=== PATIENT | female | born 1960 | race African-American/Black ===

== ENCOUNTER → 2016-11-05 | Outpatient (CLI) | payer OTHER ==
[2016-11-05 14:19] LABS: ALANINE AMINOTRANSFERASE 34 U/L (9-52); ALBUMIN 4.9 g/dL (3.5-5.0); ALKALINE PHOSPHATASE 65 U/L (38-126); ANION GAP 12 (5-19); ASPARTATE AMINO TRANSFERASE 30 U/L (14-36); BLOOD UREA NITROGEN 21 mg/dL (7-20); CALCIUM 10.1 mg/dL (8.4-10.2); CARBON DIOXIDE 28 mmol/L (22-30); CHLORIDE 101 mmol/L (98-107); CHOLESTEROL 310.86 mg/dL (0-200); CREATININE RESULT 1.31 mg/dL (0.52-1.25); Direct HDL 62 mg/dL (>40); GLUCOSE 85 mg/dL (75-110); SODIUM 140.7 mmol/L (137-145); TOTAL PROTEIN 8.1 g/dL (6.3-8.2); TRIGLYCERIDES 117 mg/dL (<150)
[2016-11-05 14:31] LABS: DIRECT LDL 211 mg/dL (<100)
[2016-11-05 14:40] LABS: ABSOLUTE EOSINOPHILS # (AUTO) 0.4 10^3/uL (0.0-0.6); ABSOLUTE MONOCYTES (AUTO) 0.3 10^3/uL (0.1-1.4); ABSOLUTE NEUT (AUTO) 1.3 10^3/uL (1.7-8.2); BASOPHILS % (AUTO) 0.2 % (0-2); EOSINOPHILS % (AUTO) 9.2 % (0-6); HEMATOCRIT 38.1 % (36.0-47.0); HEMOGLOBIN 13.5 g/dL (12.0-15.5); HGB HCT DIFFERENCE 2.4; LYMPHOCYTES % (AUTO) 51.5 % (13-45); MEAN CORPUSCULAR HEMOGLOBIN 31.6 pg (27.0-33.4); MEAN CORPUSCULAR HGB CONC 35.4 g/dL (32.0-36.0); MEAN CORPUSCULAR VOLUME 89 fl (80-97); RED BLOOD COUNT 4.28 10^6/uL (3.72-5.28); RED CELL DISTRIBUTION WIDTH 12.9 % (11.5-14.0); SEGMENTED NEUTROPHILS % (AUTO) 32.1 % (42-78); WHITE BLOOD COUNT 3.9 10^3/uL (4.0-10.5)
[2016-11-06 09:39] LABS: HEPATITIS C VIRUS AB <0.1 s/co ratio (0.0-0.9)
== END ==
LOC: CCC 12:21
DX: I10 Essential (primary) hypertension (principal); Z11.59 Encounter for screening for other viral diseases
CPT/HCPCS: 36415; 80053; 80061; 82607; 82746; 83036; 84443; 85025; 86803; 86804

== ENCOUNTER 2017-07-10 16:32 | Emergency (ER) | payer SELFPAY ==
--- NOTE | 2017-07-10 17:54 | RADIOLOGY REPORT (SQ) ---
EXAM DESCRIPTION: SOFT TISSUE NECK COMPLETED DATE/TIME: 07/10/2017 5:41 pm REASON FOR STUDY: sore throat COMPARISON: None. NUMBER OF VIEWS: Two views. TECHNIQUE: AP and lateral radiographic image of the soft tissues of the neck. LIMITATIONS: None. FINDINGS: EPIGLOTTIS: Normal. Contour normal. Aryepiglottic folds normal. PREVERTEBRAL SOFT TISSUES: Normal. No soft tissue swelling. SUBGLOTTIC AREA: Normal. No narrowing. RETROPHARYNGEAL SPACE: Normal. No soft tissue masses. BONES: No significant findings. LUNG APICES: Normal. OTHER: No radiopaque foreign body. No other significant finding. IMPRESSION: NEGATIVE STUDY OF THE SOFT TISSUES OF THE NECK. TECHNICAL DOCUMENTATION: JOB ID: [id number] [employer]- All Rights Reserved
[2017-07-10] MEDS ORDERED: SUCRALFATE SUSP 1 GM/10 ML UDCUP PO ONE (18:20)
--- NOTE | 2017-07-10 18:44 | ER Document Report ---
HPI - HPI Patient complains to provider of: Sore throat Onset: Other Onset/Duration: Gradual Quality of pain: Stabbing Severity: Moderate Pain Level: 3 Context: Patient states she has had a sore throat for the last 2-3 days, worse today. Patient states it feels like she is unable to swallow food and that her throat is partially closed. Pain is on the right side of the throat, and described as sharp. Patient states when she eats it is painful as the food goes down. Patient does admit to having reflux pretty consistently for the past 2 weeks whereas she only had it intermittently in the past. Patient denies shortness of breath, and only experiences mid chest pain as she is swallowing food. Denies fever or recent illness. Patient does have a history of allergies and takes a daily Zyrtec for this. Associated Symptoms: None Exacerbated by: Food Relieved by: Denies Similar symptoms previously: No Recently seen / treated by doctor: No - ROS ROS below otherwise negative: Yes Systems Reviewed and Negative: Yes All other systems reviewed and negative - CONSTITUTIONAL Constitutional: DENIES: Fever - EENT EENT: DENIES: Congestion - NEURO Neurology: DENIES: Headache - CARDIOVASCULAR Cardiovascular: REPORTS: Chest pain - Only with swallowing food - RESPIRATORY Respiratory: DENIES: Trouble Breathing - GASTROINTESTINAL Gastrointestinal: DENIES: Abdominal Pain - URINARY Urinary: DENIES: Dysuria - REPRODUCTIVE Reproductive: DENIES: : - MUSCULOSKELETAL Musculoskeletal: DENIES: Extremity pain - DERM Skin Color: Normal, [place] Past Medical History - General Information source: Patient - Social History Smoking Status: Never Smoker Frequency of alcohol use: None Drug Abuse: None Lives with: Family Family History: Reviewed & Not Pertinent Patient has suicidal ideation: No Patient has homicidal ideation: No - Past Medical History Cardiac Medical History: Reports: Hx Hypertension Pulmonary Medical History: Reports: Hx Asthma - SEASONAL ALLERGIES Renal/ Medical History: Denies: Hx Peritoneal Dialysis Past Surgical History: Reports: Hx Hysterectomy, Hx Tubal Ligation - Immunizations Hx Diphtheria, Pertussis, Tetanus Vaccination: Yes Vertical Provider Document - CONSTITUTIONAL Agree With Documented VS: Yes Exam Limitations: No Limitations General Appearance: WD/WN, No Apparent Distress - INFECTION CONTROL TRAVEL OUTSIDE OF THE [place] IN LAST 30 DAYS: No - HEENT HEENT: Atraumatic, Normocephalic Notes: Mild erythema to throat, more on the right side than left. Neck is supple no adenopathy. TMs are dull bilaterally. - NECK Neck: Normal Inspection - RESPIRATORY Respiratory: Breath Sounds Normal, No Respiratory Distress, Chest Non-Tender O2 Sat by Pulse Oximetry: 100 - CARDIOVASCULAR Cardiovascular: Regular Rate, Regular Rhythm - GI/ABDOMEN Gastrointestinal: Abdomen Soft, Normal Bowel Sounds Notes: Patient does have mild epigastric pain on palpation. - MUSCULOSKELETAL/EXTREMETIES Musculoskeletal/Extremeties: MAEW - NEURO Level of Consciousness: Awake, Alert, Appropriate - DERM Integumentary: Warm, Dry, No Rash Course - Re-evaluation Re-evalutation: 07/10/17 18:41 X-ray of soft tissue of neck normal and discussed with patient . consult to Dr. Hernandez with patient's HPI. Do an EKG. no further cardiac workup required at this time, have patient follow-up with her family doctor next week 07/10/17 19:06 Patient states her epigastric discomfort was relieved by the Carafate. - Vital Signs Vital signs: Temp Pulse Resp BP Pulse Ox 98.1 F 84 16 152/91 H 100 07/10/17 16:35 07/10/17 16:35 07/10/17 16:35 07/10/17 16:35 07/10/17 16:35 Discharge - Discharge Clinical Impression: Sore throat, Heartburn Condition: Good Disposition: HOME, SELF-CARE Instructions: Sore Throat ([facility]) Additional Instructions: Sore throat can be caused by postnasal drainage as well as the reflux you have been experiencing for the last 2 weeks Continue your daily antihistamine Take meds as prescribed Follow-up with your primary care doctor Thursday, schedule appointment. Return if worsens and as needed Prescriptions: Diazepam [Valium 5 mg Tablet] 5 mg PO PRN PRN #10 tablet PRN Reason: Ranitidine HCl [Zantac 150 mg Tablet] 150 mg PO BID #45 tablet Forms: Return to Work
[2017-07-10 18:54] VITALS: BP 144/96
--- NOTE | 2017-07-11 07:46 | EKG REPORT ---
SEVERITY:- BORDERLINE ECG - SINUS RHYTHM LVH BY VOLTAGE NONSPECIFIC ST-T CHANGES- INFERIOR LEADS : Confirmed by: Bruce Munoz MD 11-Jul-2017 07:45:48
== END 2017-07-10 18:54 | disposition home or self-care (01) ==
LOC: ER 16:32
DX: J02.9 Acute pharyngitis, unspecified (principal); R12 Heartburn; I10 Essential (primary) hypertension; Z90.710 Acquired absence of both cervix and uterus
CPT/HCPCS: 70360; 93005; 93010; 99283

== ENCOUNTER 2017-08-11 12:26 | Emergency (ER) | payer SELFPAY ==
--- NOTE | 2017-08-11 12:35 | ER Document Report ---
ED Medical Screen (RME) - General Chief Complaint: Headache Stated Complaint: BLOOD PRESSURE CONCERNS Time Seen by Provider: 08/11/17 12:34 Notes: Patient states she has a severe frontal headache. She states she woke up this morning with a headache and it is become more severe throughout the morning. She denies any previous history of headaches. No known trauma or fevers. She states she has been vomiting. TRAVEL OUTSIDE OF THE [place] IN LAST 30 DAYS: No - Related Data Allergies/Adverse Reactions: codeine [Codeine] Allergy (Verified 08/11/17 12:33) tetracycline [Tetracycline] Allergy (Verified 08/11/17 12:33) Past Medical History - Past Medical History Cardiac Medical History: Reports: Hx Hypertension Denies: Hx Coronary Artery Disease, Hx Heart Attack Pulmonary Medical History: Reports: Hx Asthma - SEASONAL ALLERGIES Denies: Hx Bronchitis, Hx COPD, Hx Pneumonia Neurological Medical History: Denies: Hx Cerebrovascular Accident, Hx Seizures Renal/ Medical History: Denies: Hx Peritoneal Dialysis Musculoskeltal Medical History: Denies Hx Arthritis Past Surgical History: Reports: Hx Hysterectomy, Hx Tubal Ligation - Immunizations Hx Diphtheria, Pertussis, Tetanus Vaccination: Yes Physical Exam - Vital signs Vitals: Temp Pulse Resp BP Pulse Ox 98.7 F 78 16 144/97 H 100 08/11/17 12:31 08/11/17 12:31 08/11/17 12:31 08/11/17 12:31 08/11/17 12:31 Course - Vital Signs Vital signs: Temp Pulse Resp BP Pulse Ox 98.7 F 78 16 144/97 H 100 08/11/17 12:31 08/11/17 12:31 08/11/17 12:31 08/11/17 12:31 08/11/17 12:31
--- NOTE | 2017-08-11 12:49 | RADIOLOGY REPORT (SQ) ---
EXAM DESCRIPTION: CT HEAD WITHOUT COMPLETED DATE/TIME: 08/11/2017 12:40 pm REASON FOR STUDY: severe frontal duenas COMPARISON: 04/30/2011 TECHNIQUE: Axial images acquired through the brain without intravenous contrast. Images reviewed wi th bone, brain and subdural windows. Images stored on PACS. All CT scanners at this facility use dose modulation, iterative reconstruction, and/or weight based d osing when appropriate to reduce radiation dose to as low as reasonably achievable (ALARA). [facility]: Dose Right [facility]: CareDose [facility]: Dose Right [facility]: Teradose 4D [facility]: [facility] RADIATION DOSE: 64.6mGy. LIMITATIONS: None. FINDINGS: VENTRICLES: Normal size and contour. CEREBRUM: No masses. No hemorrhage. No midline shift. No evidence for acute infarction. Normal gra y/white matter differentiation. No areas of low density in the white matter. CEREBELLUM: No masses. No hemorrhage. No alteration of density. No evidence for acute infarction. EXTRAAXIAL SPACES: No fluid collections. No masses. ORBITS AND GLOBE: No intra- or extraconal masses. Normal contour of globe without masses. CALVARIUM: No fracture. PARANASAL SINUSES: No fluid or mucosal thickening. SOFT TISSUES: No mass or hematoma. OTHER: No other significant finding. IMPRESSION: NORMAL BRAIN CT WITHOUT CONTRAST. EVIDENCE OF ACUTE STROKE: NO. COMMENT: Quality ID # [id number]: Final reports with documentation of one or more dose reduction techniques (e.g., Automated exposure control, adjustment of the mA and/or kV according to patient size, use of iterative reconstruction technique) TECHNICAL DOCUMENTATION: JOB ID: [id number] [employer]- All Rights Reserved
[2017-08-11 13:07] LABS: ABSOLUTE EOSINOPHILS # (AUTO) 0.4 10^3/uL (0.0-0.6); ABSOLUTE LYMPHOCYTES (AUTO) 1.9 10^3/uL (0.5-4.7); ABSOLUTE MONOCYTES (AUTO) 0.2 10^3/uL (0.1-1.4); ABSOLUTE NEUT (AUTO) 1.1 10^3/uL (1.7-8.2); BASOPHILS % (AUTO) 0.4 % (0-2); EOSINOPHILS % (AUTO) 10.6 % (0-6); HEMATOCRIT 37.6 % (36.0-47.0); HEMOGLOBIN 13.5 g/dL (12.0-15.5); HGB HCT DIFFERENCE 2.9; LYMPHOCYTES % (AUTO) 51.8 % (13-45); MEAN CORPUSCULAR HEMOGLOBIN 32.1 pg (27.0-33.4); MEAN CORPUSCULAR HGB CONC 35.8 g/dL (32.0-36.0); MEAN CORPUSCULAR VOLUME 90 fl (80-97); MONOCYTES % (AUTO) 6.8 % (3-13); RED BLOOD COUNT 4.19 10^6/uL (3.72-5.28); RED CELL DISTRIBUTION WIDTH 12.7 % (11.5-14.0); SEGMENTED NEUTROPHILS % (AUTO) 30.4 % (42-78); WHITE BLOOD COUNT 3.6 10^3/uL (4.0-10.5)
[2017-08-11 13:29] LABS: ALANINE AMINOTRANSFERASE 37 U/L (9-52); ALBUMIN 4.5 g/dL (3.5-5.0); ALKALINE PHOSPHATASE 67 U/L (38-126); ANION GAP 13 (5-19); ASPARTATE AMINO TRANSFERASE 32 U/L (14-36); BILIRUBIN,DIRECT 0.3 mg/dL (0.0-0.4); BLOOD UREA NITROGEN 20 mg/dL (7-20); CALCIUM 9.8 mg/dL (8.4-10.2); CARBON DIOXIDE 29 mmol/L (22-30); CHLORIDE 102 mmol/L (98-107); CREATININE RESULT 1.27 mg/dL (0.52-1.25); GLUCOSE 85 mg/dL (75-110); POTASSIUM 3.7 mmol/L (3.6-5.0); SODIUM 143.5 mmol/L (137-145); TOTAL PROTEIN 7.3 g/dL (6.3-8.2)
[2017-08-11] MEDS ORDERED: DIPHENHYDRAMINE HCL 50 MG/ML VIAL IV ONE (13:49)
[2017-08-11] MEDS ORDERED: PROCHLORPERAZINE EDISYLATE INJ 10 MG/2 ML VIAL IV ONE (13:49)
--- NOTE | 2017-08-11 13:49 | ER Document Report ---
ED Blood Pressure Problem - General Mode of Arrival: Ambulatory Information source: Patient TRAVEL OUTSIDE OF THE [place] IN LAST 30 DAYS: No <ALVA MENDOZA - Last Filed: 08/11/17 13:49> <VOLODYMYR FALL - Last Filed: 08/11/17 16:07> - General Chief Complaint: Headache Stated Complaint: BLOOD PRESSURE CONCERNS Time Seen by Provider: 08/11/17 12:34 Notes: Patient is a 57 year old female that presents to the emergency department today with complaints of elevated blood pressures with an associated headache at home. Patient states that she has been out of her HCTZ for a few days. (ALVA MENDOZA) - Related Data Allergies/Adverse Reactions: codeine [Codeine] Allergy (Verified 08/11/17 12:33) tetracycline [Tetracycline] Allergy (Verified 08/11/17 12:33) Past Medical History - General Information source: Patient - Social History Smoking Status: Never Smoker Cigarette use (# per day): No Chew tobacco use (# tins/day): No Frequency of alcohol use: Occasional Drug Abuse: None Lives with: Family Family History: Reviewed & Not Pertinent Patient has suicidal ideation: No Patient has homicidal ideation: No - Past Medical History Cardiac Medical History: Reports: Hx Hypertension Pulmonary Medical History: Reports: Hx Asthma - SEASONAL ALLERGIES Past Surgical History: Reports: Hx Hysterectomy, Hx Tubal Ligation - Immunizations Hx Diphtheria, Pertussis, Tetanus Vaccination: Yes <ALVA MENDOZA - Last Filed: 08/11/17 13:49> Review of Systems - Review of Systems Constitutional: No symptoms reported EENT: No symptoms reported Cardiovascular: See HPI, Other - HTN Respiratory: No symptoms reported Gastrointestinal: No symptoms reported Genitourinary: No symptoms reported Female Genitourinary: No symptoms reported Musculoskeletal: No symptoms reported Skin: No symptoms reported Hematologic/Lymphatic: No symptoms reported Neurological/Psychological: See HPI, Headaches -: Yes All other systems reviewed and negative <ALVA MENDOZA - Last Filed: 08/11/17 13:49> Physical Exam - Vital signs Interpretation: Normal - General General appearance: Appears well, Alert - HEENT Head: Normocephalic, Atraumatic Eyes: Normal Pupils: PERRL - Respiratory Respiratory status: No respiratory distress Chest status: Nontender Breath sounds: Normal Chest palpation: Normal - Cardiovascular Rhythm: Regular Heart sounds: Normal auscultation Murmur: No - Abdominal Inspection: Normal Distension: No distension Bowel sounds: Normal Tenderness: Nontender Organomegaly: No organomegaly - Back Back: Normal, Nontender - Extremities General upper extremity: Normal inspection, Nontender, Normal color, Normal ROM , Normal temperature General lower extremity: Normal inspection, Nontender, Normal color, Normal ROM , Normal temperature, Normal weight bearing. No: Juan's sign - Neurological Neuro grossly intact: Yes Cognition: Normal Orientation: AAOx4 [place] Coma Scale Eye Opening: Spontaneous Manjinder Coma Scale Verbal: Oriented Manjinder Coma Scale Motor: Obeys Commands [place] Coma Scale Total: 15 Speech: Normal Motor strength normal: LUE, RUE, LLE, RLE Sensory: Normal - Psychological Associated symptoms: Normal affect, Normal mood - Skin Skin Temperature: Warm Skin Moisture: Dry Skin Color: Normal <VOLODYMYR FALL - Last Filed: 08/11/17 16:07> - Vital signs Vitals: Temp Pulse Resp BP Pulse Ox 98.7 F 78 16 144/97 H 100 08/11/17 12:31 08/11/17 12:31 08/11/17 12:31 08/11/17 12:31 08/11/17 12:31 Course - Laboratory Result Diagrams: 08/11/17 12:50 08/11/17 12:50 <ALVA MENDOZA - Last Filed: 08/11/17 13:49> - Laboratory Result Diagrams: 08/11/17 12:50 08/11/17 12:50 - Diagnostic Test Radiology reviewed: Reports reviewed <VOLODYMYR FALL - Last Filed: 08/11/17 16:07> - Re-evaluation Re-evalutation: 08/11/17 Patient is feeling better after headache medicine. No acute findings on blood work or CT head. Stable for discharge. Follow-up with PMD. Patient has been given a refill of her hydrochlorothiazide. (VOLODYMYR FALL) - Vital Signs Vital signs: Temp Pulse Resp BP Pulse Ox 98.0 F 70 18 142/85 H 99 08/11/17 15:29 08/11/17 15:29 08/11/17 15:29 08/11/17 15:29 08/11/17 15:29 - Laboratory Laboratory results interpreted by me: 08/11/17 08/11/17 08/11/17 12:50 12:50 13:55 WBC 3.6 L Seg Neutrophils % 30.4 L Lymphocytes % 51.8 H Eosinophils % 10.6 H Absolute Neutrophils 1.1 L Creatinine 1.27 H Est GFR ( Amer) 52 L Est GFR (Non-Af Amer) 43 L Ur Leukocyte Esterase LARGE H Discharge <ALVA MENDOZA - Last Filed: 08/11/17 13:49> <VOLODYMYR FALL - Last Filed: 08/11/17 16:07> - Discharge Clinical Impression: Blood pressure check Headache Qualifiers: Headache type: unspecified Headache chronicity pattern: acute headache Intractability: not intractable Qualified Code(s): R51 - Headache Condition: Stable Disposition: HOME, SELF-CARE Instructions: Headache ([facility]) Prescriptions: Hydrochlorothiazide 25 mg PO DAILY #30 tablet Scribe Attestation: 08/11/17 16:07 I personally performed the services described in the documentation, reviewed and edited the documentation which was dictated to the scribe in my presence, and it accurately records my words and actions. (VOLODYMYR FALL) Scribe Documentation - Scribe Written by Yovany:: Yovany Pedraza, 08/11/2017 1358 acting as scribe for :: Alfie <ALVA MENDOZA - Last Filed: 08/11/17 13:49>
[2017-08-11 14:10] LABS: APPEARANCE,URINE SLIGHTLY-CLOUDY; BILIRUBIN,URINE NEGATIVE (NEGATIVE); GLUCOSE, URINE NEGATIVE (NEGATIVE); KETONES,URINE NEGATIVE (NEGATIVE); LEUKOCYTE ESTERASE,URINE LARGE (NEGATIVE); NITRITE,URINE NEGATIVE (NEGATIVE); PROTEIN,URINE NEGATIVE (NEGATIVE); URINE SPECIFIC GRAVITY 1.012; UROBILINOGEN,URINE NEGATIVE mg/dL (<2.0)
[2017-08-11 14:27] LABS: URINE BARBITURATES SCREEN NEGATIVE; URINE METHADONE SCREEN NEGATIVE; URINE OPIATES LOW NEGATIVE; URINE PHENCYCLIDINE SCREEN NEGATIVE
[2017-08-11 15:29] VITALS: BP 142/85
== END 2017-08-11 15:30 | disposition home or self-care (01) ==
LOC: ER 12:26
DX: I10 Essential (primary) hypertension (principal); T50.2X6A Underdosing of carbonic-anhydrase inhibitors, benzothiadiazides and other diuretics, initial encounter; Z91.128 Patient's intentional underdosing of medication regimen for other reason; Z91.14 Patient's other noncompliance with medication regimen; R51 Headache; J45.909 Unspecified asthma, uncomplicated; Z88.5 Allergy status to narcotic agent; Z88.1 Allergy status to other antibiotic agents
CPT/HCPCS: 99284; 96374; 96375; 36415; 85025; 80053; 81001; 84484; 80307; 70450; J1200; J0780

== ENCOUNTER 2019-05-19 11:50 | Emergency (ER) | payer SELFPAY ==
[2019-05-19] MEDS ORDERED: PROCHLORPERAZINE EDISYLATE INJ 10 MG/2 ML VIAL IV ONE (12:27)
[2019-05-19] MEDS ORDERED: DIPHENHYDRAMINE HCL 50 MG/ML VIAL IV ONE (12:27)
[2019-05-19] MEDS ORDERED: NORMAL SALINE 500 ML IV ONE (12:28)
[2019-05-19] MEDS ORDERED: MORPHINE SULFATE 10 MG/ML INJ IV ONE (12:30)
--- NOTE | 2019-05-19 12:30 | ER Document Report ---
ED Medical Screen (RME) - General Chief Complaint: Fall Injury Stated Complaint: LOWER BACK PAIN Time Seen by Provider: 05/19/19 12:23 Mode of Arrival: Ambulatory Information source: Patient Notes: 59-year-old female presents to ED for complaint of severe right-sided flank pain going down to her abdomen. She states she is also had nausea and vomiting x3. She states that over the last week she is tripped and fallen 3 times. Patient states yesterday her pain was just a twinge today is severe. She has right- sided flank and abdomen pain. I have spoken with Dr. Cormier who suggested that I do a abdomen pelvis combo CT scan with and without IV contrast. This has been ordered. I have greeted and performed a rapid initial assessment of this patient. A comprehensive ED assessment and evaluation of the patient, analysis of test results and completion of medical decision making process will be conducted by an additional ED providers. Dictation of this chart was performed using voice recognition software; therefore, there may be some unintended grammatical errors. TRAVEL OUTSIDE OF THE [place] IN LAST 30 DAYS: No - Related Data Allergies/Adverse Reactions: codeine [Codeine] Allergy (Verified 05/19/19 11:58) tetracycline [Tetracycline] Allergy (Verified 05/19/19 11:58) Past Medical History - Past Medical History Cardiac Medical History: Reports: Hx Hypertension Denies: Hx Coronary Artery Disease, Hx Heart Attack Pulmonary Medical History: Reports: Hx Asthma - SEASONAL ALLERGIES Denies: Hx Bronchitis, Hx COPD, Hx Pneumonia Neurological Medical History: Denies: Hx Cerebrovascular Accident, Hx Seizures Renal/ Medical History: Denies: Hx Peritoneal Dialysis Musculoskeltal Medical History: Denies Hx Arthritis Past Surgical History: Reports: Hx Hysterectomy, Hx Tubal Ligation - Immunizations Hx Diphtheria, Pertussis, Tetanus Vaccination: Yes Physical Exam - Vital signs Vitals: Temp Pulse Resp BP Pulse Ox 99.2 F 80 15 160/96 H 97 05/19/19 12:05 05/19/19 12:05 05/19/19 12:05 05/19/19 12:05 05/19/19 12:05 Course - Vital Signs Vital signs: Temp Pulse Resp BP Pulse Ox 99.2 F 80 15 160/96 H 97 05/19/19 12:05 05/19/19 12:05 05/19/19 12:05 05/19/19 12:05 05/19/19 12:05
[2019-05-19 13:14] LABS: ABSOLUTE EOSINOPHILS # (AUTO) 0.2 10^3/uL (0.0-0.6); ABSOLUTE LYMPHOCYTES (AUTO) 1.8 10^3/uL (0.5-4.7); ABSOLUTE MONOCYTES (AUTO) 0.4 10^3/uL (0.1-1.4); ABSOLUTE NEUT (AUTO) 3.1 10^3/uL (1.7-8.2); BASOPHILS % (AUTO) 0.4 % (0-2); EOSINOPHILS % (AUTO) 4.4 % (0-6); HEMATOCRIT 38.4 % (36.0-47.0); HEMOGLOBIN 13.3 g/dL (12.0-15.5); LYMPHOCYTES % (AUTO) 32.5 % (13-45); MEAN CORPUSCULAR HEMOGLOBIN 31.3 pg (27.0-33.4); MEAN CORPUSCULAR HGB CONC 34.6 g/dL (32.0-36.0); MEAN CORPUSCULAR VOLUME 90 fl (80-97); MONOCYTES % (AUTO) 7.7 % (3-13); PLATELET COUNT 177 10^3/uL (150-450); RED BLOOD COUNT 4.25 10^6/uL (3.72-5.28); TOTAL CELLS COUNTED % (AUTO) 100 %; WHITE BLOOD COUNT 5.6 10^3/uL (4.0-10.5)
[2019-05-19 13:38] LABS: ALBUMIN 4.4 g/dL (3.5-5.0); ALKALINE PHOSPHATASE 73 U/L (38-126); ANION GAP 9 (5-19); ASPARTATE AMINO TRANSFERASE 32 U/L (14-36); BILIRUBIN,DIRECT 0.2 mg/dL (0.0-0.4); BILIRUBIN,TOTAL 1.2 mg/dL (0.2-1.3); BLOOD UREA NITROGEN 16 mg/dL (7-20); CALCIUM 9.4 mg/dL (8.4-10.2); CARBON DIOXIDE 27 mmol/L (22-30); CHLORIDE 104 mmol/L (98-107); CREATINE KINASE 254 U/L (30-135); GLUCOSE 91 mg/dL (75-110); POTASSIUM 3.7 mmol/L (3.6-5.0); TOTAL PROTEIN 7.7 g/dL (6.3-8.2)
--- NOTE | 2019-05-19 14:43 | RADIOLOGY REPORT (SQ) ---
EXAM DESCRIPTION: CT ABD/PELVIS COMBO COMPLETED DATE/TIME: 05/19/2019 2:23 pm REASON FOR STUDY: flank pain multiple falls, COMPARISON: 10/21/2013 TECHNIQUE: CT scan of the abdomen and pelvis performed with and without intravenous contrast, and wi thout oral contrast. Contrasted imaging performed helical scanning technique and dynamic intravenous contrast injection. Images reviewed with lung, soft tissue, and bone windows. Reconstructed coronal a nd sagittal MPR images reviewed. Delayed images for evaluation of the urinary system also acquired. A ll images stored on PACS. All CT scanners at this facility use dose modulation, iterative reconstruction, and/or weight based d osing when appropriate to reduce radiation dose to as low as reasonably achievable (ALARA). [facility]: Dose Right [facility]: CareDose [facility]: Dose Right [facility]: Teradose 4D [facility]: [employer] CONTRAST TYPE AND DOSE: contrast/concentration: Isovue 350.00 mg/ml; Total Contrast Delivered: 91.0 ml; Total Saline Delivered: 70.0 ml RENAL FUNCTION: GFR > 60. RADIATION DOSE: CT Rad equipment meets quality standard of care and radiation dose reduction techniq ues were employed. CTDIvol: 9.0 - 9.1 mGy. DLP: 1512 mGy-cm.. LIMITATIONS: None. FINDINGS: NON-CONTRASTED IMAGING: No significant renal or bladder calcifications. No other significa nt organ calcifications. POST-CONTRASTED IMAGING: LOWER CHEST: Mild basilar subsegmental atelectasis- trace pleural fluid. LIVER: Normal size. No masses. No dilated ducts. SPLEEN: Normal size. No focal lesions. PANCREAS: No masses. No significant calcifications. No adjacent inflammation or peripancreatic fluid collections. Pancreatic duct not dilated. GALLBLADDER: No identified stones by CT criteria. No inflammatory changes to suggest cholecystitis. ADRENAL GLANDS: No significant masses or asymmetry. RIGHT KIDNEY AND URETER: Severe hydroureteronephrosis with diffuse renal cortical atrophy, this is ne w compared with the 2013 exam with abrupt transition of ureteral dilatation in the region of the righ t adnexa. No significant calcification. LEFT KIDNEY AND URETER: No solid masses. No significant calcification. No hydronephrosis or hydrouret er. AORTA AND VESSELS: No aneurysm. No dissection. Renal arteries, SMA, celiac without stenosis. RETROPERITONEUM: No retroperitoneal adenopathy, hemorrhage or masses. BOWEL AND PERITONEAL CAVITY: No masses or inflammatory changes. No free fluid or peritoneal masses. APPENDIX: Not visualized. PELVIS: Prior hysterectomy. Small amount of pelvic free fluid. Normal bladder. ABDOMINAL WALL: No masses. No hernias. BONES: No acute findings. OTHER: No other significant finding. IMPRESSION: Severe hydroureteronephrosis with diffuse renal cortical atrophy, this is new compared w ith the 2014 exam with abrupt transition of ureteral dilatation in the region of the right adnexa. N o excretion of contrast is noted on the delayed series from the right kidney. Prior hysterectomy. S mall amount of pelvic free fluid. Mild basilar subsegmental atelectasis- trace pleural fluid. TECHNICAL DOCUMENTATION: JOB ID: [id number] Quality ID # [id number]: Final reports with documentation of one or more dose reduction techniques (e.g., Au tomated exposure control, adjustment of the mA and/or kV according to patient size, use of iterative reconstruction technique) 2010 [employer]- All Rights Reserved Reading location - IP/workstation name: [email or web address]
[2019-05-19 15:11] LABS: APPEARANCE,URINE CLEAR; BILIRUBIN,URINE NEGATIVE (NEGATIVE); COLOR,URINE STRAW; GLUCOSE, URINE NEGATIVE (NEGATIVE); KETONES,URINE NEGATIVE (NEGATIVE); LEUKOCYTE ESTERASE,URINE TRACE (NEGATIVE); NITRITE,URINE NEGATIVE (NEGATIVE); PROTEIN,URINE NEGATIVE (NEGATIVE); URINE SPECIFIC GRAVITY 1.026; UROBILINOGEN,URINE NEGATIVE mg/dL (<2.0)
--- NOTE | 2019-05-19 16:36 | ER Document Report ---
ED General - General Chief Complaint: Fall Injury Stated Complaint: LOWER BACK PAIN Time Seen by Provider: 05/19/19 12:23 Mode of Arrival: Ambulatory Notes: RME NOTE: 59-year-old female presents to ED for complaint of severe right-sided flank pain going down to her abdomen. She states she is also had nausea and vomiting x3. She states that over the last week she is tripped and fallen 3 times. Patient states yesterday her pain was just a twinge today is severe. She has right- sided flank and abdomen pain. I have spoken with Dr. Cormier who suggested that I do a abdomen pelvis combo CT scan with and without IV contrast. This has been ordered. MY HPI: Patient is currently denying any right flank pain after treatments in the emergency department. States it was mostly in her right flank denies any radiation. States she did vomit once this morning with no blood. Patient's denying any diarrhea constipation. Patient's denying any fevers or dysuria. Patient's denying any vaginal discharge. States she notices that when she does not drink enough fluid sometimes her right back hurts. States she typically tries to stay well-hydrated and then feels fine. Patient states she also tripped and fell approximately 3 times in the last week. Patient states she did not felt lightheaded, dizzy, weak. States she tripped on the carpet in her house. States she needs to move the carpet so this stops happening. Patient states she did have a hysterectomy approximately 4 years ago. TRAVEL OUTSIDE OF THE [place] IN LAST 30 DAYS: No - Related Data Allergies/Adverse Reactions: codeine [Codeine] Allergy (Verified 05/19/19 11:58) tetracycline [Tetracycline] Allergy (Verified 05/19/19 11:58) Past Medical History - General Information source: Patient - Social History Smoking Status: Never Smoker Family History: Reviewed & Not Pertinent Patient has suicidal ideation: No Patient has homicidal ideation: No - Past Medical History Cardiac Medical History: Reports: Hx Hypertension Denies: Hx Coronary Artery Disease, Hx Heart Attack Pulmonary Medical History: Reports: Hx Asthma - SEASONAL ALLERGIES Denies: Hx Bronchitis, Hx COPD, Hx Pneumonia Neurological Medical History: Denies: Hx Cerebrovascular Accident, Hx Seizures Renal/ Medical History: Denies: Hx Peritoneal Dialysis Musculoskeletal Medical History: Denies Hx Arthritis Past Surgical History: Reports: Hx Hysterectomy, Hx Tubal Ligation - Immunizations Hx Diphtheria, Pertussis, Tetanus Vaccination: Yes Review of Systems - Review of Systems Constitutional: denies: Fever EENT: No symptoms reported Cardiovascular: No symptoms reported Respiratory: No symptoms reported Gastrointestinal: See HPI Genitourinary: See HPI Female Genitourinary: No symptoms reported Musculoskeletal: See HPI Skin: No symptoms reported Hematologic/Lymphatic: No symptoms reported Neurological/Psychological: No symptoms reported Physical Exam - Vital signs Vitals: Temp Pulse Resp BP Pulse Ox 99.2 F 80 15 160/96 H 97 05/19/19 12:05 05/19/19 12:05 05/19/19 12:05 05/19/19 12:05 05/19/19 12:05 - Notes Notes: GENERAL: Alert, interacts well. No acute distress. HEAD: Normocephalic, atraumatic. EYES: Pupils equal, round, and reactive to light. Extraocular movements intact. ENT: Oral mucosa moist, tongue midline. NECK: Full range of motion. Supple. Trachea midline. LUNGS: Clear to auscultation bilaterally, no wheezes, rales, or rhonchi. No respiratory distress. HEART: Regular rate and rhythm. No murmur ABDOMEN: Soft, non-tender. Non-distended. Bowel sounds present in all 4 quadrants. No McBurney's point tenderness, no Patel sign noted. EXTREMITIES: Moves all 4 extremities spontaneously. No edema, normal radial and dorsalis pedis pulses bilaterally. No cyanosis. BACK: no cervical, thoracic, lumbar midline tenderness. No saddle anesthesia, normal distal neurovascular exam. Slight right CVA tenderness noted, no left CVA tenderness noted. NEUROLOGICAL: Alert and oriented x3. Normal speech. cranial nerves II through XII grossly intact PSYCH: Normal affect, normal mood. SKIN: Warm, dry, normal turgor. No rashes or lesions noted. Course - Re-evaluation Re-evalutation: Laboratory 05/19/19 05/19/19 05/19/19 12:58 12:58 14:27 WBC 5.6 RBC 4.25 Hgb 13.3 Hct 38.4 MCV 90 MCH 31.3 MCHC 34.6 RDW 13.0 Plt Count 177 Lymph % (Auto) 32.5 Mccracken % (Auto) 7.7 Eos % (Auto) 4.4 Baso % (Auto) 0.4 Absolute Neuts (auto) 3.1 Absolute Lymphs (auto) 1.8 Absolute Monos (auto) 0.4 Absolute Eos (auto) 0.2 Absolute Basos (auto) 0.0 Seg Neutrophils % 55.0 Sodium 140.0 Potassium 3.7 Chloride 104 Carbon Dioxide 27 Anion Gap 9 BUN 16 Creatinine 1.15 Est GFR ( Amer) 58 L Est GFR (MDRD) Non-Af 48 L Glucose 91 Calcium 9.4 Total Bilirubin 1.2 Direct Bilirubin 0.2 Neonat Total Bilirubin Not Reportable Neonat Direct Bilirubin Not Reportable Neonat Indirect Bili Not Reportable AST 32 ALT 22 Alkaline Phosphatase 73 Creatine Kinase 254 H Total Protein 7.7 Albumin 4.4 Urine Color STRAW Urine Appearance CLEAR Urine pH 6.0 Ur Specific [place] 1.026 Urine Protein NEGATIVE Urine Glucose (UA) NEGATIVE Urine Ketones NEGATIVE Urine Blood SMALL H Urine Nitrite NEGATIVE Urine Bilirubin NEGATIVE Urine Urobilinogen NEGATIVE Ur Leukocyte Esterase TRACE H Urine WBC (Auto) 1 Urine RBC (Auto) 0 Squamous Epi Cells Auto <1 Urine Mucus (Auto) RARE Urine Ascorbic Acid NEGATIVE Abdomen/Pelvis CT 05/19/19 12:23 IMPRESSION: Severe hydroureteronephrosis with diffuse renal cortical atrophy, this is new compared with the 2014 exam with abrupt transition of ureteral dilatation in the region of the right adnexa. No excretion of contrast is noted on the delayed series from the right kidney. Prior hysterectomy. Small amount of pelvic free fluid. Mild basilar subsegmental atelectasis- trace pleural fluid. 05/19/19 16:34 At this time I have paged [facility] urology for consult. 05/19/19 16:45 I discussed this case with urologist Dr. Granado in [place]. He states this does not need to be emergently transferred to their facility. States the patient can follow-up outpatient. Discussed nausea and pain control with close follow-up. Discussed these results with patient and family at bedside. At this time will discharge with return precautions and follow-up recommendations. Verbal discharge instructions given a the bedside and opportunity for questions given. Medication warnings reviewed. Patient is in agreement with this plan and has verbalized understanding of return precautions and the need for primary care follow-up in the next 24-72 hours. This medical record was dictated with voice recognizing software. There may be grammatical, syntax errors that are unintended. - Vital Signs Vital signs: Temp Pulse Resp BP Pulse Ox 99.2 F 80 15 160/96 H 97 05/19/19 12:05 05/19/19 12:05 05/19/19 12:05 05/19/19 12:05 05/19/19 12:05 - Laboratory Result Diagrams: 05/19/19 12:58 05/19/19 12:58 Laboratory results interpreted by me: 05/19/19 05/19/19 12:58 14:27 Est GFR ( Amer) 58 L Est GFR (MDRD) Non-Af 48 L Creatine Kinase 254 H Urine Blood SMALL H Ur Leukocyte Esterase TRACE H Discharge - Discharge Clinical Impression: Hydroureteronephrosis Condition: Stable Disposition: HOME, SELF-CARE Additional Instructions: As we discussed you have been seen and treated in the emergency department for potential blockage of your right kidney. I have spoken with the urologist Dr. Granado in [place] at [facility]. He would like you to follow-up in his office at your earliest convenience. Please take nausea medication and pain medication only as needed. Please return to the emergency room for any further concerns. Prescriptions: Ondansetron [Zofran Odt 4 mg Tablet] 1 - 2 tab PO Q6HP PRN #15 tab.rapdis PRN Reason: For Nausea/Vomiting Hydrocodone/Acetaminophen [[place] 5-325 mg Tablet] 1 tab PO Q6 PRN #20 tablet PRN Reason: Referrals: VEDA GRANADO MD [NO LOCAL MD] - Follow up as needed
[2019-05-19 17:54] VITALS: BP 156/82
== END 2019-05-19 17:56 | disposition home or self-care (01) ==
LOC: ER 11:50
DX: N13.30 Unspecified hydronephrosis (principal); M54.5 Low back pain; R10.9 Unspecified abdominal pain; R11.2 Nausea with vomiting, unspecified; W01.0XXA Fall on same level from slipping, tripping and stumbling without subsequent striking against object, initial encounter
CPT/HCPCS: 36415; 82550; 85025; 80053; 81001; 74178; J1200; J2270; J0780; J7040